=== PATIENT | male | born 1995 | race Caucasian/White ===

== ENCOUNTER 2021-10-18 18:57 | Emergency (ER) | payer BC, SELFPAY ==
[2021-10-18 19:07] VITALS: BP 123/68; PULSE 71; RESP 20; TEMP 36.7; O2SAT 99
--- NOTE | 2021-10-18 19:58 | ED.URI ---
HPI - URI/Sore Throat General Chief Complaint: Upper Respiratory Infection Stated Complaint: sore throat/cough Source: patient and RN notes reviewed Limitations: no limitations History of Present Illness HPI Narrative: The vaccinated patient, previously mostly healthy except for orthopedic injuries, presents with similar sick friend for mild sore throat. Patient states he was exposed to a Covid positive unvaccinated patient 2 days ago; he feels he might have scant cough and sore throat. No earache, nasal congestion; no fever, loss of taste/smell, CP, vomiting/diarrhea, S OB. Patient would like Covid testing for his exposure, and discussed that the better test is a PCR Related Data Home Medications Medication Instructions Recorded Confirmed meloxicam 15 mg PO DAILY 10/18/21 10/18/21 Allergies Allergy/AdvReac Type Severity Reaction Status Date / Time No Known Allergies Allergy Unverified 10/18/21 19:11 Review of Systems Review of Systems: General/Constitutional: No weight loss,fever Eyes: N0: Redness,discharge Ears/Nose/Throat: No: Epistaxis,ear discharge Respiratory: Denies: Hemoptysis Gastrointestinal: No Vomiting, Bleeding-rectal Skin: No Lumps, eruption PMFSH Comments At time of signature, agree with nursing past medical, surgical, social and family history. There is no relevant family history pertinent to the presenting complaint Exam Narrative: General Appearance: Well appearing, Conjunctiva clear Ears: Auditory canal normal, TM normal Nose: no rhinorrhea, Mucousal erythema Mouth/Throat: MM moist, Uvula midline, Pharyngeal erythema no exudate, Supple, No adenopathy Respiratory: No respiratory distress, Breath sounds equal, Clear to auscultation Cardiovascular: RRR, No JVD Musculoskeletal: Non tender, Normal strength, Warm, Dry Neurological: A&O x3, , Normal affect Course Vital Signs Vital signs: Vital Signs Temperature 98.0 F 10/18/21 19:07 Pulse Rate 71 10/18/21 19:07 Respiratory Rate 20 10/18/21 19:07 Blood Pressure 123/68 10/18/21 19:07 Pulse Oximetry 99 10/18/21 19:07 Temperature 98.0 F 10/18/21 19:07 Pulse Rate 71 10/18/21 19:07 Respiratory Rate 20 10/18/21 19:07 Blood Pressure 123/68 10/18/21 19:07 Pulse Oximetry 99 10/18/21 19:07 Discharge Plan Discharge Clinical Impression: Tonsil pain Patient Disposition: Home, Self-Care Condition: Stable Instructions: Antibiotic Form Prescriptions: New codeine-guaifenesin 10-100 mg/5 mL liquid 7.5 ml PO Q6H PRN (Reason: cough) Qty: 118 RF: 0 lidocaine HCl [Lidocaine Viscous] 2 % solution 5 ml MUCOUS MEM QID PRN (Reason: pain) Qty: 200 RF: 1 No Action meloxicam 15 mg tablet 15 mg PO DAILY RF: 0 Other Ambulatory Orders: SARS-CoV-2 RNA, Qual RT-PCR (Routine) Location: Determined by Patient Ordered By: Nicola Donnelly Follow-up/Referrals: UNKNOWN,DOCTOR [Primary Care Provider] -
== END 2021-10-18 20:05 | disposition home or self-care (01) ==
PROVIDERS: Emergency Provider Emergency Medicine
DX: R07.0 Pain in throat (principal); Z20.822 Contact with and (suspected) exposure to COVID-19
CPT/HCPCS: 99203; G0463

== ENCOUNTER 2022-11-30 10:10 | Emergency (ER) | payer BC, SELFPAY ==
--- NOTE | ~2022-11-30 | XR_ITS ---
EXAMINATION: XR chest 2V DATE: 11/30/2022 11:05 INDICATION: Cough TECHNIQUE: PA and lateral views of the chest are obtained. COMPARISON: None available FINDINGS: There are minimal airspace opacities of the right lung base. No pleural effusion or pneumot horax. The cardiomediastinal silhouette is normal. The visualized bones and soft tissues are unremark able. IMPRESSION: 1. Minimal right basilar airspace opacity, likely pneumonia. Consider followup radiographs or CT in s ix weeks if symptoms persist after appropriate therapy. Reviewed, dictated and finalized at location B. E OPERATOR IMPRESSION: 1. Minimal right basilar airspace opacity, likely pneumonia. Consider followup radiographs or CT in six weeks if symptoms persist after appropriate therapy.
[2022-11-30 10:17] VITALS: BP 116/66; PULSE 68; RESP 16; TEMP 36.6; O2SAT 100
--- NOTE | 2022-11-30 10:38 | ED.URI ---
HPI - URI/Sore Throat General Chief Complaint: Upper Respiratory Infection Stated Complaint: Shortness of Breath,Chest Pain Time Seen by Provider: 11/30/22 10:38 Source: patient Mode of arrival: ambulatory Limitations: no limitations History of Present Illness HPI Narrative: 27-year-old male presents with complaint coughing, chest tightness, shortness of breath with exertion. Reports that he has had symptoms for approximately 1 month. Getting progressively worse. Afebrile. Cannot remember if symptoms initially started with a URI. Does not have a PCP. Patient has smoking for several years. Reports that chest tightness and shortness of breath is getting to be a nuisance while at work. All Systems reviewed and negative except as noted above. Related Data Allergies Allergy/AdvReac Type Severity Reaction Status Date / Time No Known Allergies Allergy Unverified 11/30/22 10:35 Review of Systems Review of Systems: CONSTITUTIONAL: Denies fever, chills, or sweats. EYES: Denies visual changes, redness, or discharge. ENT: Denies rhinorrhea, congestion, sore throat, or otalgia. CARDIOVASCULAR: Denies chest pain, palpitations, or edema. RESPIRATORY: reports cough and dyspnea with exertion. GASTROINTESTINAL: Denies abdominal pain, nausea, vomiting, or diarrhea. GENITOURINARY: Denies dysuria or hematuria. SKIN: Denies rash or itching. MUSCULOSKELETAL: Denies back pain, joint pain, or myalgia. NEUROLOGIC: Denies headache, numbness, or weakness. PSYCHIATRIC: Denies anxiety or depression. All other systems reviewed are negative, except as documented in HPI. PMFSH Comments At time of signature, agree with nursing past medical, surgical, social and family history. There is no relevant family history pertinent to the presenting complaint. Exam Narrative: GENERAL: This is a well-nourished, well-developed patient, in no apparent distress. HEAD: normocephalic, atraumatic. EYES: PERRL. Sclera clear/white. Vision is grossly intact. EARS: External ears normal NOSE: External nose normal with no obvious nasal discharge, nares without redness, no rhinorrhea. THROAT: Mucous membranes moist, posterior pharynx clear. NECK: Neck supple, non-tender without lymphadenopathy, masses or thyromegaly. CARDIOVASCULAR: Regular rate and rhythm without murmurs, gallops, or rubs. RESPIRATORY: Clear to auscultation. Breath sounds equal bilaterally. No wheezes, rales, or rhonchi. SKIN: warm, Dry, intact with no suspicious lesions or rash, good texture and turgor. NEURO: awake, alert, and oriented to person, place and time. There were no obvious focal neurologic abnormalities. EXTREMITIES: No joint tenderness, effusion, or edema noted. Course Course Level of Care: Express Care Visit Vital Signs Vital signs: Vital Signs Temperature 36.6 C 11/30/22 10:17 Pulse Rate 68 11/30/22 10:17 Respiratory Rate 16 11/30/22 10:17 Blood Pressure 116/66 11/30/22 10:17 Pulse Oximetry 100 11/30/22 10:17 Oxygen Delivery Room Air 11/30/22 10:17 Temperature 36.6 C 11/30/22 10:17 Pulse Rate 68 11/30/22 10:17 Respiratory Rate 16 11/30/22 10:17 Blood Pressure 116/66 11/30/22 10:17 Pulse Oximetry 100 11/30/22 10:17 Oxygen Delivery Room Air 11/30/22 10:17 reviewed MDM - URI/Sore Throat MDM Narrative Medical decision making narrative: discussed chest x-ray results with patient. Referred to a PCP to establish care. Will treat for pneumonia today. Did discuss that he will need a CT outpatient if symptoms not improving. Patient is aware of diagnosis, understands and agrees to treatment plan. Anticipatory guidance given. Patient agrees to follow-up as directed and is aware of reasons to seek care at the emergency department. Portions of this record may have been created with voice recognition software Imaging Data My impression: agree with radiologist Radiologist's impression: INDICATION: Cough TECHNIQUE: TYRESE and
== END 2022-11-30 11:28 | disposition home or self-care (01) ==
PROVIDERS: Emergency Provider Nurse Practitioner Family
DX: J18.9 Pneumonia, unspecified organism (principal)
CPT/HCPCS: 71046; 99213; G0463

== ENCOUNTER 2023-03-08 12:46 | Emergency (ER) | payer BC, SELFPAY ==
--- NOTE | ~2023-03-08 | XR_ITS ---
Clinical Indication: Chest pain PA and lateral views of the chest: Comparison: 11/30/2022 Findings: The lungs are clear, without evidence of focal consolidation or pleural effusion. Cardiome diastinal silhouette is within normal limits. Bones and soft tissues are unremarkable. Impression: Normal chest. Reviewed, dictated and finalized at location . Impression: Normal chest.
[2023-03-08 13:10] VITALS: BP 111/57; PULSE 68; RESP 16; TEMP 36.9; O2SAT 98
--- NOTE | 2023-03-08 13:22 | ED.URI ---
HPI - URI/Sore Throat General Chief Complaint: Upper Respiratory Infection Stated Complaint: chest pain,sob Time Seen by Provider: 03/08/23 13:30 Source: patient, RN notes reviewed and old records reviewed Mode of arrival: ambulatory Limitations: no limitations History of Present Illness HPI Narrative: 27 year old male presents to express care with complaints of some dyspnea with exertion noted at times and some tightness in his chest noted with his breathing. Patient reports that he was diagnosed with pneumonia in November and was told to have follow up chest x-ray for follow up but patient reports that he does not have PCP. Patient continues to vape daily though he states that he has cut use, no tachypnea noted, SAO2 98% on room air.Patient denies any history of any reactive airway disease. MD elicited complaint: other (some CLAY reported with tightness chest) Pertinent past history: pneumonia Description of mucous: clear Able to tolerate fluids by mouth: Yes Treatments prior to arrival: other (inhaler) Related Data Allergies Allergy/AdvReac Type Severity Reaction Status Date / Time No Known Allergies Allergy Verified 03/08/23 13:16 Review of Systems Review of Systems: CONSTITUTIONAL: Denies fever, chills, or sweats. EYES: Denies visual changes, redness, or discharge. ENT: Denies rhinorrhea, congestion, sore throat, or otalgia. CARDIOVASCULAR: Denies chest pain, palpitations, or edema. RESPIRATORY: Denies cough, reports some CLAY and some tightness to chest with breathing at times. GASTROINTESTINAL: Denies abdominal pain, nausea, vomiting, or diarrhea. GENITOURINARY: Denies dysuria or hematuria. SKIN: Denies rash or itching. MUSCULOSKELETAL: Denies back pain, joint pain, or myalgia. NEUROLOGIC: Denies headache, numbness, or weakness. PSYCHIATRIC: Denies anxiety or depression. All systems reviewed & are unremarkable except as noted in HPI and below PMFSH Past Medical History Medical History (Updated 03/11/23 @ 09:38 by Crystal Kohli NP) Back pain Pneumonia Surgical History Surgical History (Updated 03/08/23 @ 14:32 by Crystal Kohli NP) History of hip surgery left August 2021 Social History Social History (Updated 03/08/23 @ 14:34 by Crystal Kohli NP) Smoking status: Current every day smoker Tobacco type: e-cigarettes/vaping Alcohol intake: former Substance use: current Substance use type: marijuana Gender identity (if verbalized by the patient): Male Comments At time of signature, agree with nursing past medical, surgical, social and family history. There is no relevant family history pertinent to the presenting complaint Exam Narrative: GENERAL: Well-appearing, well-nourished, and in no acute distress. HEAD: Normocephalic, atraumatic. EYES: PERRLA and EOMI. ENT: Nares clear, no rhinorrhea or epistaxis. Mucous membranes moist.TM's normal with good light reflex, throat pink with no lesions NECK: Supple. no lymphadenopathy CHEST: Clear to auscultation. No respiratory distress.SAO2 98% on room air no tachypnea, no cough noted no accessory muscle use noted. HEART: Regular rate and rhythm. No murmur heard. Normal peripheral pulses. ABDOMEN: Soft, nontender, nondistended, normal active bowel sounds. EXTREMITIES: Normal range of motion. No edema. SKIN: Warm, dry, no rash. NEURO: No focal deficits. Alert and oriented x3. Course Course Emergency Course: Patient is aware of diagnosis, understands and agrees to treatment plan.? Anticipatory guidance given.? Patient agrees to follow-up as directed and is aware of reasons to seek care at the emergency department. Portions of this record may have been created with voice recognition software Level of Care: Express Care Visit Vital Signs Vital signs: Vital Signs Temperature 36.9 C 03/08/23 13:10 Pulse Rate 68 03/08/23 13:10 Respiratory Rate 16 03/08/23 13:10 Blood Pressure 111/57 L 03/08/23 13:10 Pulse Oximetry 98
== END 2023-03-08 14:17 | disposition home or self-care (01) ==
PROVIDERS: Emergency Provider Registered Nurse
DX: R06.09 Other forms of dyspnea (principal); F17.290 Nicotine dependence, other tobacco product, uncomplicated; F12.90 Cannabis use, unspecified, uncomplicated
CPT/HCPCS: 71046; 99213; G0463

== ENCOUNTER 2023-10-01 13:38 | Emergency (ER) | payer OTHER, SELFPAY ==
--- NOTE | ~2023-10-01 | XR_ITS ---
EXAMINATION: XR chest 2V Exam Date/Time: 10/01/2023 14:05 SHELLAC POLISHER HISTORY: cough for 3 weeks Comparison: 03/08/2023 and 11/30/2022. RESULT: Lines, tubes, and devices: None. Lungs and pleura: Scattered areas of scar. Granulomas calcifications. Scattered reticulonodular opac ities. Cardiomediastinal silhouette: Stable. Other: No acute osseous or upper abdominal finding. IMPRESSION: Pulmonary opacities may represent bronchiolitis, as can be seen with atypical infection, asthma, aspi ration, and small airways disease Reviewed, dictated and finalized at location K. LAC POLISHER IMPRESSION: Pulmonary opacities may represent bronchiolitis, as can be seen with atypical i nfection, asthma, aspiration, and small airways disease
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
[2023-10-01 14:05] VITALS: BP 131/82; PULSE 75; RESP 18; TEMP 36.9; O2SAT 98
== END 2023-10-01 15:00 | disposition home or self-care (01) ==
PROVIDERS: Emergency Provider Nurse Practitioner Family
DX: J01.90 Acute sinusitis, unspecified (principal); J20.9 Acute bronchitis, unspecified; F17.290 Nicotine dependence, other tobacco product, uncomplicated; F12.90 Cannabis use, unspecified, uncomplicated
CPT/HCPCS: 71046; 99213; G0463

== ENCOUNTER 2024-05-26 14:47 | Emergency (ER) | payer OTHER, SELFPAY ==
[2024-05-26 14:55] VITALS: BP 126/71; PULSE 67; RESP 18; TEMP 36.8; O2SAT 99
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
[2024-05-26 18:06] LABS: Trichomonas Vag PCR NOT DETECTED (NOT DETECTE)
[2024-05-26 18:30] LABS: Chlamydia trachomatis NOT DETECTED (NOT DETECTE); Neisseria gonorrhoeae PCR NOT DETECTED (NOT DETECTE)
== END 2024-05-26 15:13 | disposition home or self-care (01) ==
PROVIDERS: Emergency Provider Nurse Practitioner Family
DX: Z11.3 Encounter for screening for infections with a predominantly sexual mode of transmission (principal); Z20.822 Contact with and (suspected) exposure to COVID-19; F17.290 Nicotine dependence, other tobacco product, uncomplicated; F12.90 Cannabis use, unspecified, uncomplicated
CPT/HCPCS: 87491; 87591; 87661; 99213; G0463

== ENCOUNTER 2024-09-03 10:56 | Emergency (ER) | payer OTHER, SELFPAY ==
[2024-09-03 11:06] VITALS: BP 122/69; PULSE 70; RESP 16; TEMP 36.6; O2SAT 99
--- NOTE | 2024-09-03 11:11 | ED.WOUNDLAC ---
HPI - Wound/Laceration General Stated Complaint: head wound Time Seen by Provider: 09/03/24 11:11 Source: patient and RN notes reviewed Mode of arrival: ambulatory Limitations: no limitations History of Present Illness HPI narrative: 29-year-old male presents with concern for alina in his head. Reports he had them placed 9 days ago. Reports his work is giving him problems with returning with the alina in his head for safety reasons. He denies any complications, any bleeding any pain. Related Data Home Medications Medication Instructions Recorded Confirmed No Home Medications 05/26/24 09/03/24 Allergies Allergy/AdvReac Type Severity Reaction Status Date / Time No Known Allergies Allergy Verified 05/26/24 15:04 Review of Systems Review of Systems: CONSTITUTIONAL: Denies malaise, chills, sweats, or fever. SKIN: Reports healing laceration to his scalp MUSCULOSKELETAL: Denies muscle skeletal pain NEUROLOGIC: Denies numbness, weakness All systems reviewed & are unremarkable except as noted in HPI and below PMFSH Past Medical History Medical History Back pain Pneumonia Surgical History Surgical History History of hip surgery left August 2021 Social History Social History Smoking status: Current every day smoker Tobacco type: e-cigarettes/vaping Alcohol intake: former Substance use: current Substance use type: marijuana Gender identity (if verbalized by the patient): Male Comments At time of signature, agree with nursing past medical, surgical, social and family history. There is no relevant family history pertinent to the presenting complaint Exam Narrative: GENERAL: Well-appearing, well-nourished, and in no acute distress. HEAD: Normocephalic, atraumatic. EYES: PERRLA, conjunctivae clear, and EOMI. ENT: Mucous membranes moist. NECK: Supple. No lymphadenopathy CHEST: Clear to auscultation. No respiratory distress. HEART: Regular rate and rhythm. SKIN: Warm, dry. Healed laceration noted to the scalp with 5 intact staple NEURO: Alert and oriented x3. PSYCH: Normal mood and affect Course Course Emergency Course: Patient is aware of diagnosis, understands and agrees to treatment plan. Anticipatory guidance given. Patient agrees to follow-up as directed and is aware of reasons to seek care at the emergency department. Portions of this record may have been created with voice recognition software Level of Care: Express Care Visit Vital Signs Vital signs: Vital Signs Temperature 97.8 F 09/03/24 11:06 Pulse Rate 70 09/03/24 11:06 Respiratory Rate 16 09/03/24 11:06 Blood Pressure 122/69 09/03/24 11:06 Pulse Oximetry 99 09/03/24 11:06 Oxygen Delivery Room Air 09/03/24 11:06 Temperature 97.8 F 09/03/24 11:06 Pulse Rate 70 09/03/24 11:06 Respiratory Rate 16 09/03/24 11:06 Blood Pressure 122/69 09/03/24 11:06 Pulse Oximetry 99 09/03/24 11:06 Oxygen Delivery Room Air 09/03/24 11:06 Reviewed. MDM - Wound/Laceration MDM Narrative Medical decision making narrative: Verbal consent was obtained. Wound well approximated, no erythema, induration, or discharge noted. Five alian completely removed in a sterile fashion. Patient tolerated procedure well, no complications. Patient advised to look for and return for any signs of infection such as redness, swelling, discharge, or worsening pain. Differential Diagnosis Differential diagnosis: Likely laceration, abrasion and avulsion of skin Critical Care Time Critical Care Time Critical Care Time: No Discharge Plan Discharge Clinical Impression: Removal of alina Patient Disposition: Home, Self-Care Condition: Stable Instructions: Antibiotic Form Additional Instructions: AFTER the staple are remov
[2024-09-03 11:13] VITALS: BP 122/69; PULSE 70; RESP 16; TEMP 36.6; O2SAT 99
== END 2024-09-03 11:24 | disposition home or self-care (01) ==
PROVIDERS: Emergency Provider Nurse Practitioner
DX: S01.01XD Laceration without foreign body of scalp, subsequent encounter (principal); X58.XXXD Exposure to other specified factors, subsequent encounter; F17.290 Nicotine dependence, other tobacco product, uncomplicated; F12.90 Cannabis use, unspecified, uncomplicated
CPT/HCPCS: 99211; G0463

== ENCOUNTER 2025-06-13 00:38 | Day surgery (SDC) | payer OTHER, SELFPAY ==
[2025-06-11 13:11] VITALS: BMI 18.8
--- OUTSIDE RECORDS SUMMARY | 2025-06-13 00:40 | XMS_ITS | Referral Summary ---
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 Name Role Phone Unknown, Notinfile Primary Care Provider Unavail able Encounters Date Type Department Care Team Description 05/22/2025 12:40 PM CDT - 05/22/2025 3:14 PM CDT Emergency [facility] [address] [place] [address] Jared Avendano MD Intercostal pain (Primary Dx) Discharge Disposition: Discharge to home or self care from Last 3 Months Allergies No known active allergies Social History Tobacco Use Types Packs/Day Years Used Date Smoking Tobacco: Never Assessed Personal Safety Answer Date Recorded Have you ever been in or are you currently in a harmful physical or emotional relationship or is someone making you feel afraid or unsafe? Denies 05/22/2025 Sex and Gender Information Value Date Recorded Sex Assigned at Not on file Legal Sex Male 12:34 PM [employer] Gender Identity Not on file Sexual Orientation Not on file Last Filed Vital Signs Vital Sign Reading Time Taken Comments Blood Pressure 102/55 05/22/2025 3:06 PM CDT Pulse 55 05/22/2025 3:06 PM CDT Temperature 36.6 C (97.9 F) 05/22/2025 12:18 PM CDT Respiratory Rate 15 05/22/2025 3:06 PM CDT Oxygen Saturation 99% 05/22/2025 3:06 PM CDT Inhaled Oxygen Concentration - - Weight 56.7 kg (125 lb) 05/22/2025 12:18 PM CDT Height 170.2 cm (5' 7) 05/22/2025 12:18 PM CDT Body Mass Index 19.58 05/22/2025 12:18 PM CDT Plan of Treatment Not on file Procedures Procedure Name Priority Date/Time Associated Diagnosis Comments TROPONIN I HIGH-SENSITIVITY 2-HOUR Timed 05/22/2025 2:26 PM CDT POCT RAPID HIV ANTIBODY COMMUNITY SCREENING-OLE ELIGIBLE Routine 05/22/2025 1:33 PM CDT D-DIMER, QUANTITATIVE STAT 05/22/2025 1:25 PM CDT XR CHEST PA LATERAL 2 VIEWS ED 05/22/2025 12:59 PM CDT ECG 12-LEAD STAT 05/22/2025 12:37 PM CDT EGFR STAT 05/22/2025 12:33 PM CDT DIFFERENTIAL AUTO STAT 05/22/2025 12: 33 PM CDT TROPONIN I HIGH-SENSITIVITY SERIES (BASELINE, 2HR, 4HR, 6HR) STAT 05/22/2025 12:33 PM CDT COMPREHENSIVE METABOLIC PANEL STAT 05/22/2025 12:33 PM CDT CBC WITH AUTO DIFFERENTIAL STAT 05/22/2025 12:33 PM CDT from Last 3 Months Results * Troponin I high-sensitivity 2-hour (05/22/2025 2:26 PM CDT) Trop I hs <4 <=35 ng/L Comment: Interpretive Data For further hscTnI resources including the diagnostic algorithm and an aid in interpretation, copy and paste this link: https://bjhlab.testcatalog.org/show/hsTrop-[email or web address] Current Interpretive Data last revised 2020. Trop I hs delta 0 ng/L [facility] Trop I hs interp Insignificant [facility] H Blood 05/22/2025 2:26 PM CDT 05/22/2025 2:46 PM CDT Margaret White MD LAB BLOOD ORDERABLES Final Result [facility] Department [place] [employer] [place] [address] * POCT Rapid HIV Antibody Community Screening-Ole Eligible (05/22/2025 1:33 PM CDT) Pathologist [facility] [place] Rapid HIV, POC Negative Negative Lot Number [id number] QC Control Line Acceptable Blood 05/22/2025 1:33 PM CDT Jared Avendano MD POINT OF CARE TEST ORDER KATHLEEN Final Result * D-dimer, quantitative (05/22/2025 1:25 PM CDT) [facility] D-Dimer <215 <=499 ng/mL FEU Comment: Interpretive data FDA approved the D-dimer, in conjunction with a low or moderate pretest probability score, to exclude venous thromboembolic events (VTE) (PE and DVT) in outpatients when the D-dimer result is < 500 ng/ml FEU. Evidence supports using an age-adjusted D-dimer cut-off for outpatients older than 50 (age x 10) to improve specificity without sacrificing sensitivity. Example: age 68, VTE cut-off 680 ng/ml FEU. References; Schouten HT et al. Brit Med J. 2013;346:f2492. Alex et al. Annals Int Med. 2015;163:701-11. Current interpretive data was last revised on 2019. Blood 05/22/2025 1:25 PM CDT 05/22/2025 1:41 PM CDT us Nemesio Mullins MD LAB BLOOD ORDERABLES F inal Result Performing Organization Address City/[facility]/ZIP Co de Phone Number [facility] Department [place] [employer] [place] [address] * XR Chest PA Lateral 2 Views (If patient hemodynamically stable and ambulatory) (05/22/2025 12:59 PMCDT) Anatomical Region Laterality Modality Body, Chest N/A Computed Radiogr aphy 05/22/2025 1:04 PM CDT Impressions 05/22/2025 1:31 PM CDT No focal consolidation, pleural effusion, or pneumothorax. The cardiomediastinal silhouette is unremarkable. Calcified granuloma. Dictated by: Inez Ortiz MD, MPHS The radiology attending physician has personally reviewed this study, and had reviewed and/or edited this written report and agrees with it. Electronically signed by: Richie Mendez M.D. Narrative 05/22/2025 1:31 PM CDT EXAMINATION: 2 view chest radiograph Procedure Note Richie Mendez MD - 05/22/2025 EXAMINATION: 2 view chest radiograph IMPRESSION: No focal consolidation, pleural effusion, or pneumothorax. The cardiomediastinal silhouette is unremarkable. Calcified granuloma. Dictated by: Inez Ortiz MD, MPHS The radiology attending physician has personally reviewed this study, and had reviewed and/or edited this written report and agrees with it. Electronically signed by: Richie Mendez M.D. Jared Avendano MD IMG XR PROCEDURES Final Result * ECG 12-LEAD (05/22/2025 12:37 PM CDT) Narrative [facility] [place] - 05/22/2025 12:37 PM CDT Katelyn Mccray MD 05/22/2025 12:38 PM ECG 12 lead Date/Time: 05/22/2025 12:37 PM Performed by: Katelyn Mccray MD Authorized by: Moe Ng MD Rate: ECG rate: 59 ECG rate assessment: bradycardic Rhythm: Rhythm: sinus bradycardia Ectopy: Ectopy: none QRS: QRS axis: Normal Conduction: Conduction: normal ST segments: ST segments: Normal T waves: T waves: non-specific and inverted Inverted: V1, aVL and aVR Other findings: Other findings: early repolarization Previous ECG: Previous ECG: Unavailable Interpretation: Interpretation: No acute injury pattern Recommended Follow-up: Recommended follow up: further workup in the ED us Jared Avendano MD ECG ORDERABLES Final Re sult [facility] * Troponin I high-sensitivity series (baseline, 2hr, 4hr, 6hr) (05/22/2025 12:33 PM CDT) Trop I hs <4 <=35 ng/L Comment: Interpretive Data For further hscTnI resources including the diagnostic algorithm and an aid in interpretation, copy and paste this link: https://bjhlab.testcatalog.org/show/hsTrop-[email or web address] Current Interpretive Data last revised 2020. Blood 05/22/2025 12:3 3 PM CDT 05/22/2025 12:51 PM CDT us Jared Avendano MD LAB BLOOD ORDERABLES Fin al Result [facility] [place] [address] * eGFR (05/22/2025 12:33 PM CDT) eGFR >90 >=60 mL/min/1. 73 m2 Comment: Interpretive Data Reference Interval Normal >/= 90 mL/min/1.73m2 Mildly decreased* 60 - 89 mL/min/1.73m2 Mildly to moderately decreased 45 - 59 mL/min/1.73m2 Moderately to severely decreased 30 - 44 mL/min/1.73m2 Severely decreased 15 - 29 mL/min/1.73m2 Kidney Failure < 15 mL/min/1.73m2 *Relative to young adult level Estimated glomerular filtration rate is determined by the 2020 CKD-EPI equation recommended by the National Kidney Foundation (A Unifying Approach to GFR Estimation: Recommendations of the NKF-ASK Task Force on Reassessing the Inclusion of Race in Diagnosing Kidney Disease, JASN 2020). The CKD-EPI equation should not be used for patients with unstable renal function and has not been validated in children and those over 70. Current interpretive data was last reviewed 2021. Blood 05/22/2025 12:3 3 PM CDT 05/22/2025 12:51 PM CDT us Margaret White MD LAB BLOOD ORDERABLES Final Result [facility] [place] [address] * Differential, auto (05/22/2025 12:33 PM CDT) Neutrophil abs 2.54 1.50 - 6.50 K/cumm Imm gran abs 0.02 0.00 - 0.10 K/cumm [facility] Lymphocyte abs 2.17 0.80 - 3.30 K/cumm [facility] Monocyte abs 0.71 0.20 - 0.80 K/cumm [facility] Eosinophil abs 0.17 0.00 - 0.50 K/cumm [facility] Basophil abs 0.07 0.00 - 0.10 K/cumm [facility] Neutrophil pct 44.7 % [facility] Comment: Interpretive Data Percent cell count reference ranges are not reported, since discordance with absolute values may lead to misinterpretation of CBC data. Current Interpretive Data was last revised on 2018. Imm gran pct 0.4 % [facility] Comment: Interpretive Data Percent cell count reference ranges are not reported, since discordance with absolute values may lead to misinterpretation of CBC data. Current Interpretive Data was last revised on 2018. Lymphocyte pct 38.2 % [facility] Comment: Interpretive Data Percent cell count reference ranges are not reported, since discordance with absolute values may lead to misinterpretation of CBC data. Current Interpretive Data was last revised on 2018. Monocyte pct 12.5 % [facility] Comment: Interpretive Data Percent cell count reference ranges are not reported, since discordance with absolute values may lead to misinterpretation of CBC data. Current Interpretive Data was last revised on 2018. Eosinophil pct 3.0 % [facility] Comment: Interpretive Data Percent cell count reference ranges are not reported, since discordance with absolute values may lead to misinterpretation of CBC data. Current Interpretive Data was last revised on 2018. Basophil pct 1.2 % [facility] Comment: Interpretive Data Percent cell count reference ranges are not reported, since discordance with absolute values may lead to misinterpretation of CBC data. Current Interpretive Data was last revised on 2018. Blood 05/22/2025 12:3 3 PM CDT 05/22/2025 12:51 PM CDT us Jared Avendano MD LAB BLOOD ORDERABLES Fin al Result [facility] [place] [address] * CBC with auto differential (05/22/2025 12:33 PM CDT) WBC 5.68 3.80 - 9.90 K/cumm Hgb 14.6 13.0 - 17.5 g/dL [facility] Hct 41.9 38.9 - 50.3 % [facility] Plt 246 150 - 400 K/cumm [facility] MPV 9.9 9.1 - 12.3 fL [facility] RBC 4.97 4.30 - 5.80 M/cumm [facility] MCV 84.3 81.3 - 96.4 fL [facility] MCH 29.4 27.1 - 33.3 pg [facility] MCHC 34.8 32.3 - 35.7 g/dL [facility] RDW CV 13.1 11.1 - 14.9 % [facility] RDW SD 40.4 35.7 - 48.1 fL [facility] NRBC abs 0.00 0.00 - 0.01 K/cumm [facility] Blood Venous blood specimen / Unknown 05/22/2025 12:33 PM CDT 05/22/2025 12:51 PM CDT Jared Avendano MD LAB BLOOD ORDERABLES Fin al Result Performing Organization Address [facility]/ZIP Co de Phone Number [facility] [place] [address] * (ABNORMAL) Comprehensive metabolic panel (05/22/2025 12:33 PM CDT) Sodium 139 135 - 145 mmol/L Potassium, pl 4.6 3.3 - 4.9 mmol/L [facility] Chloride 105 97 - 110 mmol/L [facility] CO2 28 22 - 32 mmol/L [facility] Anion gap 6 2 - 15 mmol/L [facility] BUN 12 6 - 25 mg/dL [facility] Creatinine 0.79(L) 0.80 - 1.30 mg/dL [facility] Glucose 94 70 - 199 mg/dL [facility] Comment: Interpretive Data Fasting glucose >/= 126 mg/dl is diagnostic for diabetes. Fasting is defined as no caloric intake for at least 8 hours. Fasting glucose between 100 mg/dl to 125 mg/dl is diagnostic of prediabetes. In a patient with classic symptoms of hyperglycemia or hyperglycemic crisis, a random glucose >/= 200 mg/dl is diagnostic for diabetes. In the absence of unequivocal hyperglycemia, results should be confirmed by repeat testing. The classification and Diagnosis of Diabetes Diabetes Care 2021; 46: S19-S40. Current interpretive data was last revised 2022. Calcium 9.1 8.5 - 10.3 mg/dL [facility] Bilirubin, total 0.5 0.1 - 1.2 mg/dL [facility] Protein, pl 7.0 6.5 - 8.5 g/dL [facility] Albumin 4.4 3.5 - 5.0 g/dL [facility] Alk phos 53 40 - 130 Units/L [facility] ALT 28 7 - 55 Units/L [facility] AST 30 10 - 50 Units/L [facility] Blood 05/22/2025 12:3 3 PM CDT 05/22/2025 12:51 PM CDT Jared Avendano MD LAB BLOOD ORDERABLES Fin al Result Performing Organization Address [facility]/State/ZIP Co de Phone Number [facility] [place] [address] from Last 3 Months Insurance BLUE [employer] O[employer] COVENTRY PPO [employer] COV[employer] PPO Care Teams Engine Oiler Relationship Specialty Start Date End Date Unknown, Notinfile PCP - General 10/10/22
--- OUTSIDE RECORDS SUMMARY | 2025-06-13 00:40 | XMS_ITS | Clinical Summary ---
Author Organization [facility] Address [address] [place] [address] Care Team Providers Care Professor Of Psychiatry Name Role Phone Katelyn Harry [employer] Primary Care Provider [phone] Allergies No known active allergies Medications dicyclomine (BENTYL) 20 MG tablet Take 1 tablet (20 mg total) by mouth every 6 (six) hours. 20 tablet 5 Active ondansetron (ZOFRAN-ODT) 4 MG disintegrating tablet Take 1 tablet (4 mg total) by mouth every 8 (eight) hours as needed for Nausea. 20 tablet 5 Active Encounters Date Type Department Care Team Description 06/06/2025 9:31 AM CDT - 06/06/2025 12:04 PM CDT Emergency [facility] Emergency Room [address] [place] [id number] Zita Fonseca MD Abdominal Pain Discharge Disposition: Home or Self Care (Routine Discharge) 06/06/2025 Travel from Last 3 Months Family History Medical History Relation Comments Heart Disease Father Hypertension Father Asthma Mother Diabetes Sister Relation Status Comments Father Mother Sister Social History Tobacco Use Types Packs/Day Years Used Date Smoking Tobacco: Every Day Cigarettes 1 10 Smokeless Tobacco: Never Tobacco Cessation:Ready to Q uit: Not Asked; Counseling Given: Not Answered Comments:patient states he doesn't want counseling. Alcohol Use Standard Drinks/Week Comments No 0 (1 standard drink = 0.6 oz pur e alcohol) AUDIT-C Answer Date Recorded Frequency of Alcohol Consumption Never 06/29/2019 Average Number of Drinks Not on file 019 Frequency of Binge Drinking Not on file 06/20 Sex and Gender Information Value Date Recorded Sex Assigned at Not on file Legal Sex Male 8:16 PM CDT Gender Identity Not on file Sexual Orientation Not on file Last Filed Vital Signs Vital Sign Reading Time Taken Comments Blood Pressure 119/62 06/06/2025 11:24 AM CDT Pulse 46 06/06/2025 11:25 AM CDT Temperature 36.6 C (97.9 F) 06/06/2025 9:38 AM CDT Respiratory Rate 19 06/06/2025 11:25 AM CDT Oxygen Saturation 96% 06/06/2025 11:25 AM CDT Inhaled Oxygen Concentration - - Weight 56.7 kg (125 lb) 06/06/2025 9:38 AM CDT Height 170.2 cm (5' 7) 06/06/2025 9:38 AM CDT Body Mass Index 19.58 06/06/2025 9:38 AM CDT Plan of Treatment Health Maintenance Due Date Last Done Comments Annual Physical 1998 Hepatitis C 2013 DTaP, Tdap and Td Vaccines ( 1 - Tdap) 2014 Hepatitis B Vaccines (1 of 3 - 19+ 3-dose series) 2014 Pneumococcal Vaccine: Pediatrics (0 to 5 Years) and At-Risk Patients (6 to 49 Years) (1 of 2 - PCV) 2014 HPV Vaccines (1 - 3-dose SCD M series) 2022 COVID-19 Vaccine (3 - 2023-2 5 season) 2024 07/20/2021, 06/28/2021 Meningococcal B Vaccine Aged Out No l onger eligible based on patient's age to complete this topic Meningococcal Vaccine Aged Out No bhavana caesar eligible based on patient's age to complete this topic RSV Immunizations Under 20 Months Aged Out No longer eligible b ased on patient's age to complete this topic Procedures Procedure Name Priority Date/Time Associated Diagnosis Comments CT ABD+PEL W CON STAT 06/06/2025 11:1 0 AM CDT D-DIMER, QUANTITATIVE STAT 06/06/2025 9:48 AM CDT DRUG SCREEN RAPID STAT 06/06/2025 9:4 8 AM CDT URINALYSIS, AUTO, COMPLETE STAT 06/06/2025 9:48 AM CDT MAGNESIUM STAT 06/06/2025 9:48 AM CDT LACTIC ACID W REFLEX (SEPSIS) STAT 06/06/2025 9:48 AM CDT AMYLASE STAT 06/06/2025 9:48 AM CDT LIPASE STAT 06/06/2025 9:48 AM CDT COMPREHENSIVE METABOLIC PANEL STAT 06/06/2025 9:48 AM CDT SED RATE, ERYTHROCYTE (ESR) STAT 06/06/2025 9:48 AM CDT PARTIAL THROMBOPLASTIN TIME,PTT STAT 06/06/2025 9:48 AM CDT PROTHROMBIN TIME, VENOUS STAT 06/06/2025 9:48 AM CDT CBC W/DIFF AUTOMATED STAT 06/06/2025 9:48 AM CDT from Last 3 Months Results * CT ABD+PEL W CON (06/06/2025 11:10 AM CDT) Anatomical Region Laterality Modality Abdomen Computed Tomogra phy 06/06/2025 11:1 4 AM CDT Impressions 06/06/2025 11:18 AM CDT Impression: 1. No acute findings identified within the abdomen or pelvis. Normal appendix. 2. Trace simple appearing free fluid in the pelvis, nonspecific. 3. Bilateral sacroiliitis. Ordered By: ZITA FONSECA Interpreted By: Demarco Nixon MD, 06/06/2025 11:14 AM Narrative 06/06/2025 11:18 AM CDT [facility] [address] [place] [id number] CT abdomen and pelvis with IV contrast Comparison: AP abdomen pelvis 10/05/2017.. Indication: Right upper and right lower quadrant pain . Technique: CT imaging was performed of the abdomen and pelvis following the administration of intravenous contrast. Iodinated contrast was used due to the indications for the examination, to improve disease detection and further define anatomy. Coronal and sagittal reformatted images were generated and reviewed. A dose lowering technique was utilized for this procedure which may include but is not limited to dose reduction techniques, automated exposure control, and/or the use of iterative reconstruction in accordance with ALARA principle. Findings: - Lower Thorax: Calcified granulomas in the right lower lobe. No suspicious pulmonary abnormalities. No pleural or pericardial effusions. - Liver: Normal in morphology and enhancement. No suspicious hepatic masses are identified. The main portal vein is patent. - Biliary and Gallbladder: No intrahepatic or extrahepatic biliary ductal dilatation. The gallbladder is unremarkable. - Spleen: Normal in appearance. - Pancreas: Normal in appearance. - Adrenal Glands: Normal in appearance. - Kidneys: Symmetric in size and enhancement. No suspicious renal lesions. No hydronephrosis. - Abdominal and Pelvic Vasculature: No abdominal aortic aneurysm. - Gastrointestinal Tract: No abnormal dilation or wall thickening. The appendix is identified and is within normal limits. - Peritoneum/Mesentery/Retroperitoneum: Trace simple appearing free fluid in the pelvis, nonspecific. No free intraperitoneal air. - Lymph Nodes: No retroperitoneal, mesenteric, or pelvic lymphadenopathy. - Bladder: Normal in appearance. - Pelvic Organs: Unremarkable. - Body Wall: Unremarkable. - Musculoskeletal: No aggressive appearing osseous lesions. Bilateral sacroiliitis. Procedure Note Demarco Nixon MD - 06/06/2025 [facility] [address] [place] [address] CT abdomen and pelvis with IV contrast Comparison: AP abdomen pelvis 10/05/2017.. Indication: Right upper and right lower quadrant pain . Technique: CT imaging was performed of the abdomen and pelvis followingthe administration of intravenous contrast. Iodinated contrast was useddue to the indications for the examination, to improve disease detectionand further define anatomy. Coronal and sagittal reformatted images weregenerated and reviewed. A dose lowering technique was utilized for thisprocedure which may include but is not limited to dose reductiontechniques, automated exposure control, and/or the use of iterativereconstruction in accordance with ALARA principle. Findings: - Lower Thorax: Calcified granulomas in the right lower lobe. Nosuspicious pulmonary abnormalities. No pleural or pericardialeffusions. - Liver: Normal in morphology and enhancement. No suspicious hepaticmasses are identified. The main portal vein is patent. - Biliary and Gallbladder: No intrahepatic or extrahepatic biliary ductaldilatation. The gallbladder is unremarkable. - Spleen: Normal in appearance. - Pancreas: Normal in appearance. - Adrenal Glands: Normal in appearance. - Kidneys: Symmetric in size and enhancement. No suspicious renallesions. No hydronephrosis. - Abdominal and Pelvic Vasculature: No abdominal aortic aneurysm. - Gastrointestinal Tract: No abnormal dilation or wall thickening. Theappendix is identified and is within normal limits. - Peritoneum/Mesentery/Retroperitoneum: Trace simple appearing free fluidin the pelvis, nonspecific. No free intraperitoneal air. - Lymph Nodes: No retroperitoneal, mesenteric, or pelviclymphadenopathy. - Bladder: Normal in appearance. - Pelvic Organs: Unremarkable. - Body Wall: Unremarkable. - Musculoskeletal: No aggressive appearing osseous lesions. Bilateralsacroiliitis. Impression: 1. No acute findings identified within the abdomen or pelvis. Normalappendix. 2. Trace simple appearing free fluid in the pelvis, nonspecific. 3. Bilateral sacroiliitis. Ordered By: ZITA FONSECA Interpreted By: Demarco Nixon MD, 06/06/2025 11:14 AM Zita Fonseca MD CT Final Result * LACTIC ACID W REFLEX (SEPSIS) (06/06/2025 9:48 AM CDT) LACTIC ACID VENOUS 1.3 0.4 - 2.0 MMOL/L 06/06/2025 10:42 AM CDT [facility] 06/06/2025 9:48 AM CDT Zita Fonseca MD LABORATORY Final Result [facility] [address] [place] [address], [place] [phone] * (ABNORMAL) DRUG SCREEN RAPID (06/06/2025 9:48 AM CDT) [facility] AMPHETAMINE (U) NONE DETECTED NONE DETECTED 06/06/2025 10:42 AM CDT [facility] BARBITURATES SCREEN (U) NONE DETECTED NONE DETECTED 06/06/2025 10:42 AM CDT [facility] BENZODIAZEPINES SCREEN (U) NONE DETECTED NONE DETECTED 06/06/2025 10:42 AM CDT [facility] BUPRENORPHINE SCREEN (U) NONE DETECTED NONE DETECTED 06/06/2025 10:42 AM CDT [facility] COCAINE METABOLITES (U) NONE DETECTED NONE DETECTED 06/06/2025 10:42 AM CDT [facility] METHAMPHETAMINE (U) NONE DETECTED NONE DETECTED 06/06/2025 10:42 AM CDT [facility] METHADONE (U) NONE DETECTED NONE DETECTED 06/06/2025 10:42 AM CDT [facility] OPIATE SCREEN (U) NONE DETECTED NONE DETECTED 06/06/2025 10:42 AM CDT [facility] OXYCODONE SCREEN (U) NONE DETECTED NONE DETECTED 06/06/2025 10:42 AM CDT [facility] PHENCYCLIDINE PCP (U) NONE DETECTED NONE DETECTED 06/06/2025 10:42 AM CDT [facility] CANNABINOIDS SCREEN (U) DETECTED(A) NONE DETECTED 06/06/2025 10:42 AM CDT [facility] TRICYCLIC ANTIDEPRESSANT SCREEN (U) NONE DETECTED NONE DETECTED 06/06/2025 10:42 AM CDT [facility] Comment: NOTE: RESULTS OF THIS DRUG SCREEN SHOULD BE USED FOR MEDICAL PURPOSES ONLY AND NOT FOR LEGAL OR EMPLOYEMENT PURPOSES. MEDICATIONS CONTAINING EPHEDRINE MAY CAUSE FALSE POSITIVE AMPHETAMINE. AMPHETAMINE- 500 NG/ML BARBITURATE- 200 NG/ML BENZODIAZEPINE- 150 NG/ML BUPRENORPHINE- 10 NG/ML COCAINE- 150 NG/ML METHAMPHETAMINES- 500 NG/ML METHADONE- 200 NG/ML OPIATE- 100 NG/ML OXYCODONE- 100 NG/ML PCP- 25 NG/ML THC- 50 NG/ML TCA- 300 NG/ML URINE SPECIMEN / Unknown 06/06/2025 9:48 AM CDT us Zita Fonseca MD URINE ORDERABLES Final Result [facility] [address] [place] [address], [place] [phone] * URINALYSIS, AUTO, COMPLETE (06/06/2025 9:48 AM CDT) COLOR (U) YELLOW 06/06/2025 10:40 AM CDT [facility] TRANSPARENCY CLEAR 06/06/2025 10:40 AM CDT [facility] SPECIFIC GRAVITY (U) 1.015 1.000 - 1.030 06/06/2025 10:40 AM T [facility] U PH 7.0 5.0 - 9.0 06/06/2025 10:40 AM T [facility] LEUKOCYTES (U) NEGATIVE NEGATIVE 06/06/2025 10:40 AM T [facility] NITRITES NEGATIVE NEGATIVE 06/06/2025 10:40 AM CDT [facility] PROTEIN RANDOM (U) NEGATIVE NEGATIVE 06/06/2025 10:40 AM T [facility] GLUCOSE (U) NEGATIVE NEGATIVE 06/06/2025 10:40 AM CDT [facility] KETONES MG/DL (U) NEGATIVE NEGATIVE 06/06/2025 10:40 AM CDT [facility] BILIRUBIN (U) NEGATIVE NEGATIVE 06/06/2025 10:40 AM CDT [facility] BLOOD (U) NEGATIVE NEGATIVE 06/06/2025 10:40 AM CDT [facility] WBC/HPF NONE SEEN 0 - 5 /HPF 06/06/2025 10:40 AM CDT [facility] RBC/HPF NONE SEEN 0 - 5 /HPF 06/06/2025 10:40 AM CDT [facility] EPI/HPF FEW /HPF 06/06/2025 10:40 AM CDT [facility] URINE SPECIMEN OBTAINED BY CLEAN CATCH PROCEDURE / Unknown 06/06/2025 9:48 AM CDT us Zita Fonseca MD URINE ORDERABLES Final Result [facility] [address] [place] [address], [place] [phone] * PARTIAL THROMBOPLASTIN TIME,PTT (06/06/2025 9:48 AM CDT) PTT 33.9 25.1 - 36.5 SEC 06/06/2025 11:01 AM CDT [facility] 06/06/2025 9:48 AM CDT us Zita Fonseca MD LABORATORY Final Result [facility] [address] [place] [address], [place] [phone] * SED RATE, ERYTHROCYTE (ESR) (06/06/2025 9:48 AM CDT) ESR 4 0 - 15 MM/HR 06/06/2025 10:51 AM CDT [facility] 06/06/2025 9:48 AM CDT us Zita Fonseca MD LABORATORY Final Result Performing Organization Address [facility]/ZIP Co de Phone Number [facility] [address] [place] [address], [place] [phone] * (ABNORMAL) PROTIME/INR, VENOUS (06/06/2025 9:48 AM CDT) PROTIME 13.8(H) 9.1 - 12.4 SEC 06/06/2025 11:01 AM CDT [facility] INR 1.2 06/06/2025 11:01 AM CDT [facility] Comment: Recommend INR ranges for Oral Anticoagulant Therapy: Mechanical Cardiac Values 2.5-3.5 All others indication 2.0-3.0 06/06/2025 9:48 AM CDT us Zita Fonseca MD LABORATORY Final Result Performing Organization Address City/[facility]/ZIP Co de Phone Number [facility] [address] [place] [address], [place] [phone] * (ABNORMAL) COMPREHENSIVE METABOLIC PANEL (06/06/2025 9:48 AM CDT) GLUCOSE 102(H) 70 - 99 MG/DL 06/06/2025 10:36 AM CDT [facility] BUN 13 7 - 18 MG/DL 06/06/2025 10:36 AM CDT [facility] CREATININE S/P/B 0.56(L) 0.7 - 1.3 MG/DL 06/06/2025 10:36 AM CDT [facility] SODIUM S/P/B 141 136 - 145 MMOL/L 06/06/2025 10:36 AM CDT [facility] POTASSIUM S/P/B 4.0 3.5 - 5.1 MMOL/L 06/06/2025 10:36 AM [facility] CHLORIDE S/P/B 103 100 - 108 MMOL/L 06/06/2025 10:36 AM [facility] CO2 29.8 21 - 32 MMOL/L 06/06/2025 10:36 AM [facility] CALCIUM S/P/B 9.3 8.5 - 10.1 MG/DL 06/06/2025 10:36 AM [facility] BILIRUBIN TOTAL S/P/B 0.4 0.2 - 1.2 MG/DL 06/06/2025 10:36 AM [facility] TOTAL PROTEIN S/P/B 8.1 6.4 - 8.2 G/DL 06/06/2025 10:36 AM [facility] ALBUMIN S/P/B 4.5 3.4 - 5.0 G/DL 06/06/2025 10:36 AM [facility] AST 14(L) 15 - 37 U/L 06/06/2025 10:36 AM [facility] ALT 20 16 - 60 U/L 06/06/2025 10:36 AM [facility] ALKALINE PHOSPHATASE S/P/B 68 50 - 136 U/L 06/06/2025 10:36 AM [facility] ANION GAP 8.2 5 - 15 MMOL/L 06/06/2025 10:36 AM [facility] BUN CREATININE RATIO 23.2 6 - 26 06/06/2025 10:36 AM [facility] A/G RATIO 1.2 1.0 - 2.0 RATIO 06/06/2025 10:36 AM [facility] GFR ESTIMATE >90 >90 ML/MIN/1.7 3 M2 06/06/2025 10:36 AM CDT [facility] Comment: NOTE: eGFR is not calculated for patients <18 years of age. This is an estimated GFR calculation using the new CKD EPI creatinine equation without race and so does not require a correction factor for race. This estimated GFR should not be used for calculating drug doses. 06/06/2025 9:48 AM CDT Zita Fonseca MD LABORATORY Final Result [facility] [address] [place] [address], [place] [phone] * D-DIMER, QUANTITATIVE (06/06/2025 9:48 AM CDT) D-DIMER <215 0 - 500 ng{FEU}/mL 06/06/2025 11:01 AM CDT [facility] Comment: D-Dimer values less than or equal to 500 ng/mL FEU have a negative predictive value of >95% for exclusion of deep vein thrombosis and pulmonary embolism. In patients over 50 (who tend to have higher normal baseline D-Dimer values), recent studies suggest age-adjusted D-Dimer cutoff values (calculated as: age [years] x 10 ng/mL) result in equivalent outcomes and no additional false negative findings. 06/06/2025 9:48 AM CDT Zita Fonseca MD LABORATORY Final Result [facility] [address] [place] [address], [place] [phone] * CBC W/DIFF AUTOMATED (06/06/2025 9:48 AM CDT) WBC 6.48 4.4 - 11.0 x10'3/uL 06/06/2025 10:22 AM CDT [facility] RBC 5.12 4.50 - 5.90 x10'6/uL 06/06/2025 10:22 AM T [facility] HGB 15.3 14.0 - 17.5 G/DL 06/06/2025 10:22 AM T [facility] HCT 44.6 41.5 - 50.4 % 06/06/2025 10:22 AM T [facility] MCV 87.1 80.0 - 96.0 FL 06/06/2025 10:22 AM T [facility] MCH 29.9 26.5 - 31.4 PG 06/06/2025 10:22 AM T [facility] MCHC 34.3 31.9 - 34.8 G/DL 06/06/2025 10:22 AM [facility] RDW 13.1 12.3 - 14.3 % 06/06/2025 10:22 AM T [facility] PLT 190 151 - 353 x10'3/uL 06/06/2025 10:22 AM [facility] MPV 10.9 9.7 - 11.9 FL 06/06/2025 10:22 AM [facility] RBC MORPHOLOGY NORMAL 06/06/2025 10:22 AM T [facility] PLT MORPH. NORMAL 06/06/2025 10:22 AM T [facility] WBC MORPHOLOGY NORMAL 06/06/2025 10:22 AM T [facility] LYMPHOCYTES % 22.7 15.8 - 45.0 % 06/06/2025 10:22 AM T [facility] NEUTROPHILS % 64.5 42.1 - 71.9 % 06/06/2025 10:22 AM T [facility] MONOCYTES % 11.1 5.7 - 12.5 % 06/06/2025 10:22 AM CDT [facility] EOSINOPHILS 0.9 0.0 - 5.6 % 06/06/2025 10:22 AM CDT [facility] BASOPHILS 0.6 0.0 - 1.3 % 06/06/2025 10:22 AM CDT [facility] ABS. NEUTROPHILS 4.18 1.40 - 6.00 x10'3/uL 06/06/2025 10:22 AM CDT [facility] IMMATURE GRANS % 0.2 0.0 - 0.5 % 06/06/2025 10:22 AM CDT [facility] ABS. LYMPHOCYTES 1.47 0.80 - 4.70 x10'3/uL 06/06/2025 10:22 AM CDT [facility] 06/06/2025 9:48 AM CDT us Zita Fonseca MD LABORATORY Final Result [facility] [address] [place] [address], [place] [phone] * AMYLASE (06/06/2025 9:48 AM CDT) AMYLASE S/P/B 61 25 - 115 UNITS/L 06/06/2025 10:36 AM CDT [facility] 06/06/2025 9:48 AM CDT us Zita Fnoseca MD LABORATORY Final Result Performing Organization Address City/[facility]/ZIP Co de Phone Number [facility] [address] [place] [address], [place] [phone] * MAGNESIUM (06/06/2025 9:48 AM CDT) MAGNESIUM 1.9 1.8 - 2.4 MG/DL 06/06/2025 10:36 AM CDT [facility] 06/06/2025 9:48 AM CDT us Zita Fonseca MD LABORATORY Final Result Performing Organization Address City/[facility]/ZIP Co de Phone Number [facility] [address] [place] [address], [place] [phone] * LIPASE (06/06/2025 9:48 AM CDT) LIPASE 22 16 - 77 UNITS/L 06/06/2025 10:36 AM CDT [facility] 06/06/2025 9:48 AM CDT us Zita Fonseca MD LABORATORY Final Result Performing Organization Address [facility] de Phone Number [facility] [address] [place] [address], [place] [phone] from Last 3 Months Insurance [employer] Care Teams Professor Of Psychiatry Relationship Specialty Start Date End Date Katelyn Harry NP [address] [place] [address] PCP - General FAMILY PRACTICE 06/06/25
--- OUTSIDE RECORDS SUMMARY | 2025-06-13 00:40 | XMS_ITS | Clinical Summary ---
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 Gender Identity Not on file Sexual Orientation Not on file Plan of Treatment Health Maintenance Due Date Last Done Comments Hepatitis C Virus (HCV) Screening 1995 TdaP Immunization 1995 Hepatitis B Immunization (1 of 3 - 19+ 3-dose series) 2014 Influenza Immunization (#1) 2024 SARS-COV-2 Immunization (3 - 2023- season) 2024 07/20/2021, 06/28/2021 Respiratory Syncytial Virus (RSV) Immunization (Adult) (1 - 1-dose 75+ series) 2070 Meningococcal Immunization (ACWY) Aged Out No longer eligible b ased on patient's age to complete this topic Pneumococcal Immunization Combined Aged Out No longer eligible b ased on patient's age to complete this topic Rotavirus Immunization Aged Out No lo nger eligible based on patient's age to complete this topic
--- OUTSIDE RECORDS SUMMARY | 2025-06-13 00:40 | XMS_ITS | Clinical Summary ---
Author Organization [facility] Address [address] [place] [address] Phone Care Team Providers Care Retort Cooler Name Role Phone Unknown, Notinfile Primary Care Provider Unavail able Allergies No known active allergies Encounters Date Type Department Care Team Description 05/22/2025 12:40 PM CDT - 05/22/2025 3:14 PM CDT Emergency [facility] Emergency Department [address] [place] [address] Jared Avendano MD Intercostal pain (Primary Dx) Discharge Disposition: Discharge to home or self care from Last 3 Months Social History Tobacco Use Types Packs/Day Years Used Date Smoking Tobacco: Never Assessed Personal Safety Answer Date Recorded Have you ever been in or are you currently in a harmful physical or emotional relationship or is someone making you feel afraid or unsafe? 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 Gender Identity Not on file Sexual Orientation Not on file Obstetrics History Last Filed Vital Signs Vital Sign Reading [...] 05/22/2025 12:18 PM CDT Plan of Treatment Health Maintenance Due Date Last Done Comments Depression Screening 1995 Hepatitis C Screening 1995 DTaP/Tdap/Td Vaccine (1 - Tdap) 2006 Varicella Vaccines (1 of 2 - 13+ 2-dose series) 2008 Hepatitis B Screening 2013 Regular Well Visit/Exam 18-64 2013 Covid-19 Vaccine (3 - 2023-2 5 season) 2024 07/20/2021, 06/28/2021 Influenza Vaccine (#1) 2025 HPV Vaccines Aged Out No longer eligi ble based on patient's age to complete this topic Pneumococcal vaccine <65 Aged Out No longer eligible based on patient's age to complete [...] I high-sensitivity 2-hour (05/22/2025 2:26 PM CDT) [facility] Trop I hs <4 <=35 ng/L Comment: Interpretive Data For further hscTnI resources including the diagnostic algorithm and an aid in interpretation, copy and paste this link: https://bjhlab.testcatalog.org/show/hsTrop-1 Current Interpretive Data last revised 2020. Trop I hs delta 0 ng/L [facility] Trop I hs interp Insignificant [facility] Blood 05/22/2025 2:26 PM CDT 05/22/2025 2:46 PM CDT us Margaret White MD LAB BLOOD ORDERABLES Final Result [facility] [place] [address] * POCT Rapid HIV Antibody Community Screening-Ole Eligible (05/22/2025 1:33 PM CDT) [facility] Rapid HIV, POC Negative Negative Lot Number [id number] QC Control Line Acceptable Blood 05/22/2025 1:33 PM CDT Jared Avendano MD POINT OF CARE TEST ORDER KATHLEEN Final Result * D-dimer, quantitative (05/22/2025 1:25 PM CDT) [facility] D-Dimer <215 <=499 ng/mL FEU Comment: [...] 68, VTE cut-off 680 ng/ml FEU. References; Schoutrylan HT et al. Brit Med J. 2013;346:f2492. Alex et al. Annals Int Med. 2015;163:701-11. Current interpretive data was last revised on 2019. Blood 05/22/2025 1:25 PM CDT 05/22/2025 1:41 PM CDT us Nemesio Mullins MD LAB BLOOD ORDERABLES F inal Result [facility] [place] [address] * XR Chest PA Lateral 2 Views [...] it. Electronically signed by: Richie Mendez M.D. us Jared Avendano MD IMG XR PROCEDURES Final Result * ECG 12-LEAD (05/22/2025 12:37 PM CDT) Narrative [facility] - 05/22/2025 12:37 PM CDT Katelyn Mccray [...] Avendano MD ECG ORDERABLES Final Re sult [facility] * Troponin I high-sensitivity series (baseline, 2hr, 4hr, 6hr) (05/22/2025 12:33 PM CDT) Pathologist [facility] [place] Trop I hs <4 <=35 ng/L Comment: Interpretive Data For further hscTnI resources including the diagnostic algorithm and an aid in interpretation, copy and paste this link: https://bjhlab.testcatalog.org/show/hsTrop-1 Current Interpretive Data last revised 2020. Blood 05/22/2025 12:3 3 PM CDT 05/22/2025 12:51 PM CDT us Jared Avendano MD LAB BLOOD ORDERABLES Fin al Result [facility] Department [place] [address] * eGFR (05/22/2025 12:33 PM CDT) Pathologist [facility] [place] eGFR >90 >=60 mL/min/1. 73 m2 Comment: [...] of Race in Diagnosing Kidney Disease, JASN 202). The CKD-EPI equation should not be used for patients with unstable renal function and has not been validated in children and those over 70. Current interpretive data was last reviewed 2021. Blood 05/22/2025 12:3 3 PM CDT 05/22/2025 12:51 PM CDT us Margaret White MD LAB BLOOD ORDERABLES Final Result [facility] [place] [address] * Differential, auto (05/22/2025 12:33 PM CDT) Neutrophil abs 2.54 1.50 - 6.50 K/cumm Imm gran abs 0.02 0.00 - 0.10 K/cumm [facility] Lymphocyte abs 2.17 0.80 - 3.30 K/cumm [facility] Monocyte abs 0.71 0.20 - 0.80 K/cumm [facility] Eosinophil abs 0.17 0.00 - 0.50 K/cumm [facility] Basophil abs 0.07 0.00 - 0.10 K/cumm [facility] Neutrophil pct 44.7 % [facility] Comment: Interpretive Data Percent cell count reference ranges are not reported, since discordance with absolute values may lead to misinterpretation of CBC data. Current Interpretive Data was last revised on 2018. Imm gran pct 0.4 % [facility] Comment: Interpretive Data Percent cell count reference ranges are not reported, since discordance with absolute values may lead to misinterpretation of CBC data. Current Interpretive Data was last revised on 2018. Lymphocyte pct 38.2 % [facility] Comment: Interpretive Data Percent cell count reference ranges are not reported, since discordance with absolute values may lead to misinterpretation of CBC data. Current Interpretive Data was last revised on 2018. Monocyte pct 12.5 % [facility] Comment: Interpretive Data Percent cell count reference ranges are not reported, since discordance with absolute values may lead to misinterpretation of CBC data. Current Interpretive Data was last revised on 2018. Eosinophil pct 3.0 % [facility] Comment: Interpretive Data Percent cell count reference ranges are not reported, since discordance with absolute values may lead to misinterpretation of CBC data. Current Interpretive Data was last revised on 2018. Basophil pct 1.2 % [facility] Comment: Interpretive Data Percent cell count reference ranges are not reported, since discordance with absolute values may lead to misinterpretation of CBC data. Current Interpretive Data was last revised on 2018. Blood 05/22/2025 12:3 3 PM CDT 05/22/2025 12:51 PM CDT us Jared Avendano MD LAB BLOOD ORDERABLES Fin al Result [facility] [place] [address] * CBC with auto differential (05/22/2025 12:33 PM CDT) WBC 5.68 3.80 - 9.90 K/cumm Hgb 14.6 13.0 - 17.5 g/dL [facility] Hct 41.9 38.9 - 50.3 % [facility] Plt 246 150 - 400 K/cumm [facility] MPV 9.9 9.1 - 12.[address] [facility] RBC 4.97 4.30 - 5.80 M/cumm [facility] MCV 84.3 81.3 - 96.[address] [facility] MCH 29.4 27.1 - 33.[address] [facility] MCHC 34.8 32.3 - 35.7 g/dL [facility] RDW CV 13.1 11.1 - 14.9 % [facility] RDW SD 40.4 35.7 - 48.[address] [facility] NRBC abs 0.00 0.00 - 0.01 K/cumm [facility] Blood Venous blood specimen / Unknown 05/22/2025 12:33 PM CDT 05/22/2025 12:51 PM CDT us Jared Avendano MD LAB BLOOD ORDERABLES Fin al Result [facility] [place] [address] * (ABNORMAL) Comprehensive metabolic panel (05/22/2025 12:33 PM CDT) Sodium 139 135 - 145 mmol/L Potassium, pl 4.6 3.3 - 4.9 mmol/L [facility] Chloride 105 97 - 110 mmol/L [facility] CO2 28 22 - 32 mmol/L [facility] Anion gap 6 2 - 15 mmol/L [facility] BUN 12 6 - 25 mg/dL [facility] Creatinine 0.79(L) 0.80 - 1.30 mg/dL [facility] Glucose 94 70 - 199 mg/dL [facility] Comment: Interpretive Data Fasting glucose >/= [...] classification and Diagnosis of Diabetes Diabetes Care 202; 46: S19-S40. Current interpretive data was last revised 2022. Calcium 9.1 8.5 - 10.3 mg/dL [facility] Bilirubin, total 0.5 0.1 - 1.2 mg/dL [facility] Protein, pl 7.0 6.5 - 8.5 g/dL [facility] Albumin 4.4 3.5 - 5.0 g/dL [facility] Alk phos 53 40 - 130 Units/L [facility] ALT 28 7 - 55 Units/L [facility] AST 30 10 - 50 Units/L [facility] Blood 05/22/2025 12:3 3 PM CDT 05/22/2025 12:51 PM CDT us Jared Avendano MD LAB BLOOD ORDERABLES Fin al Result [facility] [place] [address] from Last 3 Months Insurance [employer] PPO A[employer] [place] PPO Care Teams Retort Cooler Relationship Specialty Start Date End Date Unknown, Notinfile PCP - General 10/10/22
[2025-06-13 13:13] VITALS: BP 126/66; PULSE 72; RESP 18; TEMP 36.3; O2SAT 100
[2025-06-13] MEDS: LACTATED RINGERS 1,000 ML 150 ML IV CONT (13:24)
[2025-06-13] MEDS: SIMETHICONE ORAL SUSPENSION 20 MG/0.3 ML 30 ML BOTTLE 1.8 ML PO (13:26)
--- NOTE | 2025-06-13 13:33 | WPDANESEPPF ---
Anes - Initial Pre Proc Eval Procedure: Operation Date: 06/13/25 14:15 Proposed Procedures p EGD & Diagnostic Colonoscopy - Ok López MD Date/Time: 06/13/25 13:33 Surgeon: Ok López MD Pre Op Diagnosis: Generalized abdominal pain Patient Data Age: 29 Gender: M Height: 1.7 m Weight: 53 kg Last Vital Signs Temp 36.3 C L 06/13/25 13:13 Pulse 72 06/13/25 13:13 Resp 18 06/13/25 13:13 BP 126/66 06/13/25 13:13 Pulse Ox 100 06/13/25 13:13 O2 Del Method Room Air 06/13/25 13:13 Allergies Allergy/AdvReac Type Severity Reaction Status Date / Time No Known Allergies Allergy Verified 06/13/25 13:11 Home Medications ?Medication ?Instructions ?Recorded ?Confirmed ?Type No Home Medications 06/11/25 06/13/25 History Patient hx anesthesia problems: none Family hx anesthesia problems: none Results Review: All pre-operative results and documents have been reviewed as part of the pre-operative evaluation. [facility] Past Medical History Medical History Back pain Pneumonia Surgical History Surgical History History of hip surgery left August 2021 Family History Family History Father Bone disease Hypertension Heart disease Grandparent Cancer Hypertension Grandparent Dementia Cancer Hypertension Sibling Depression Mother Hypertension Social History Social History Smoking status: Current every day smoker Tobacco type: cigarettes and e-cigarettes/vaping Alcohol intake: never Substance use: current Substance use type: marijuana Last use: every day Living arrangements: with family Gender identity (if verbalized by the patient): Male Spiritual care concerns: No Anes - Eval Final PreProcedure Day of Procedure 06/13/25 13:33 Patient weight: normal Heart: regular rate and rhythm Lungs: clear to auscultation Airway: Mallampati scale class II Neurological: alert and oriented Last oral intake: >/= 8 hours ASA classification: II Emergent: no Anesthetic plan: proceed Anesthesia type and monitoring: general GIVS and standard monitoring Results Review: All pre-operative results and documents have been reviewed as part of the pre-operative evaluation. Informed Consent: The patient's anesthetic plan and its attendant risks and benefits were discussed with the patient/family/POA. Questions were solicited and answers provided to the satisfaction of the patient/family/POA.
--- NOTE | 2025-06-13 14:05 | PM.IMHP ---
H&P: HPI History of Present Illness Date/Time: 06/13/25 14:05 Chief Complaint: Diarrhea, occasional bloody stools. Narrative: Patient referred by his primary care physician for endoscopy & colonoscopy for intermittent diarrhea and occasional rectal bleeding. Review of Systems Review of Systems: All systems reviewed & are unremarkable except as noted in HPI and below PMFSH Past Medical History Medical History Back pain Pneumonia Surgical History Surgical History History of hip surgery left August 2021 Family History Family History Father Bone disease Hypertension Heart disease Grandparent Cancer Hypertension Grandparent Dementia Cancer Hypertension Sibling Depression Mother Hypertension Social History Social History Smoking status: Current every day smoker Tobacco type: cigarettes and e-cigarettes/vaping Alcohol intake: never Substance use: current Substance use type: marijuana Last use: every day Living arrangements: with family Gender identity (if verbalized by the patient): Male Spiritual care concerns: No Meds Home Medications and Allergies Home Medications ?Medication ?Instructions ?Recorded ?Confirmed ?Type No Home Medications 06/11/25 06/13/25 History Allergies Allergy/AdvReac Type Severity Reaction Status Date / Time No Known Allergies Allergy Verified 06/13/25 13:11 Vital Signs Vital Signs - 24 hr 06/13/25 13:13 Temperature 97.4 F L Pulse Rate 72 Respiratory Rate 18 Blood Pressure 126/66 Pulse Oximetry 100 Oxygen Delivery Room Air Exam Const: General: cooperative and healthy appearing Resp: Effort & Inspection: normal respiratory effort and able to speak in complete sentences Auscultation: clear to auscultation bilaterally Cardio: Rate: regular rate Rhythm: regular rhythm GI: Inspection: normal to inspection GI Palp: No No hepatosplenomegaly present Auscultation: normal bowel sounds Rectal Exam: deferred Skin: General skin exam: normal color Psych: Appearance: grossly normal Mental Status: mental status grossly normal Assessment and Plan Assessment and plan (1) Generalized postprandial abdominal pain: Code(s): R10.84 - Generalized abdominal pain Status: Acute Assessment and Plan: The patient is deemed a good candidate for the procedures. Consent signed. Will proceed. (2) Chronic diarrhea: Code(s): K52.9 - Noninfective gastroenteritis and colitis, unspecified Status: Acute
--- NOTE | 2025-06-13 14:33 | SUR.OPER ---
EGD start 1425 end 1428, Colonoscopy start 1433.
[2025-06-13] MEDS: SIMETHICONE ORAL SUSPENSION 20 MG/0.3 ML 30 ML BOTTLE 0.6 ML IRRIGATION (14:37)
[2025-06-13 14:50] VITALS: BP 108/56; PULSE 60; RESP 20; O2SAT 100
--- NOTE | 2025-06-13 14:50 | S_PTH ---
PATIENT: Lucien Small LOC: [facility] U#:[id number] AGE/SX: 29/M ROOM: RE06/13/[address]: Ok López MD : 1995 BED: DIS: 06/13/2025 SPEC #: [id number] RECD: 06/16/25 07:44 STATUS: SWAPNA REQ #: [id number] NAIF: 06/13/25 14:[address]: Ok López DEPT: [facility] Surgical RECD BY: Imelda Conway ENTERED: 06/16/25 07:45 SP TYPE: Surgical OTHR DR: Katelyn Harry, RICARDA Tissues: A - Gastric Biopsy B - Gastric Biopsy C - Colon Biopsy D - Colon Biopsy Procedures: Hematoxylin and Eosin Stain Gross and Microscopic Level 4
[2025-06-13 15:00] VITALS: BP 111/55; PULSE 64; RESP 20; O2SAT 100
[2025-06-13 15:10] VITALS: BP 111/62; PULSE 71; RESP 22; O2SAT 100
== END 2025-06-13 15:21 | disposition home or self-care (01) ==
PROVIDERS: PCP Nurse Practitioner Family; Referring Provider Nurse Practitioner Family; Visit Provider Internal Medicine Gastroenterology
PROC: 0DJ08ZZ Inspection of Upper Intestinal Tract, Via Natural or Artificial Opening Endoscopic (ICD-10-PCS; CPT 45378; principal; 2025-06-13 14:15)
DX: K52.832 Lymphocytic colitis (principal); K29.30 Chronic superficial gastritis without bleeding; F17.210 Nicotine dependence, cigarettes, uncomplicated; F17.290 Nicotine dependence, other tobacco product, uncomplicated; F12.90 Cannabis use, unspecified, uncomplicated
CPT/HCPCS: 45380; 43239; 88305; J2004; J2704; J7120

== ENCOUNTER 2025-10-04 09:48 | Outpatient (CLI) | payer OTHER, SELFPAY ==
--- OUTSIDE RECORDS SUMMARY | 2025-10-04 09:51 | XMS_ITS | Clinical Summary ---
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
--- OUTSIDE RECORDS SUMMARY | 2025-10-04 09:52 | XMS_ITS | Clinical Summary ---
Author Organization [facility] Address 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
--- OUTSIDE RECORDS SUMMARY | 2025-10-04 09:52 | XMS_ITS | Clinical Summary ---
Author Organization [facility] Address [address] [place] [address] Care Team Providers Care Healthcare Advisory Services Manager Name Role Phone Katelyn Harry CUT OUT STITCHER Primary Care Provider [phone] Allergies No known active allergies Medications dicyclomine (BENTYL) 20 MG tablet Take 1 tablet (20 mg total) by mouth every 6 (six) hours. 20 tablet 5 Active ondansetron (ZOFRAN-ODT) 4 MG disintegrating tablet Take 1 tablet (4 mg total) by mouth every 8 (eight) hours as needed for Nausea. 20 tablet 5 Active Family History Medical History Relation Comments Heart [...] M series) 2022 COVID-19 Vaccine (3 - 2024-2 6 season) 2025 07/20/2021, 06/28/2021 Influenza Adult (#1) 2025 Hepatitis A Vaccines Aged Out No long er eligible based on patient's age to complete this topic Meningococcal B Vaccine Aged Out No l onger eligible based on patient's age to complete this topic Meningococcal Vaccine Aged Out No bhavana caesar eligible based on patient's age to complete this topic RSV Immunizations Under 20 Months Aged Out No longer eligible b ased on patient's age to complete this topic Insurance AETNA Care Teams Healthcare Advisory Services Manager Relationship Specialty Start Date End Date Katelyn Harry, [address] [place] [address] PCP - General FAMILY PRACTICE 06/06/25
[2025-10-04 10:05] LABS: Hematocrit 44.8 % (42.0-52.0); Hemoglobin 15.5 g/dL (14.0-18.0); Immature Granulocyte Percent A 0.3 % (0-0.5); Lymphocytes Absolute Auto 2.47 K/mm3 (0.9-3.2); Mean Corpuscular HGB Conc 34.6 g/dl (32-36); Mean Corpuscular Hemoglobin 29.9 pg (26-34); Mean Corpuscular Volume 86.5 fl (80-100); Nucleated Red Blood Cells Absolute Auto 0.000 K/mm3 (0.0-0.012); Nucleated Red Blood Cells Perc 0.0 % (0.0-0.2); Platelet Count Result 209 k/mm3 (150-375); Red Blood Count 5.18 M/mm3 (4.6-6.20); White Blood Count 7.0 K/mm3 (4.5-10.0)
[2025-10-04 10:26] LABS: Alanine Aminotransferase 22 U/L (6-50); Albumin Level 4.8 g/dL (3.5-5.1); Alkaline Phosphatase 61 U/L (38-126); Anion Gap 8 mmol/L (4-12); Aspartate Amino Transferase 27 U/L (17-59); Bilirubin,Total 0.6 mg/dL (0.2-1.3); Blood Urea Nitrogen 16 mg/dL (9-20); Calcium 9.3 mg/dL (8.4-10.2); Carbon Dioxide 30 mmol/L (22-30); Chloride 100 mmol/L (98-107); Cholesterol 174 mg/dL (0-200); Estimated Glomerular Filt Rate > 60; Glucose 96 mg/dL (65-110); HDL Direct 43 mg/dL; Potassium 4.0 mmol/L (3.4-5.0); Sodium 138 mmol/L (137-145); Total Protein 7.7 g/dL (6.3-8.2); Triglycerides 88 mg/dL (<150)
[2025-10-04 10:56] LABS: Thyroid Stimulating Hormone Reflex 1.260 uIU/mL (0.465-4.68)
== END 2025-10-04 09:49 | disposition home or self-care (01) ==
LOC: ANHLAB 09:49
PROVIDERS: PCP Nurse Practitioner Family; Visit Provider Nurse Practitioner Family
DX: K52.9 Noninfective gastroenteritis and colitis, unspecified (principal); R10.84 Generalized abdominal pain; Z13.220 Encounter for screening for lipoid disorders
CPT/HCPCS: 36415; 80053; 80061; 84443; 85025; 85652

== ENCOUNTER 2025-11-19 15:10 | Outpatient (CLI) | payer OTHER, SELFPAY ==
--- OUTSIDE RECORDS SUMMARY | 2025-11-19 15:13 | XMS_ITS | Clinical Summary ---
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
--- OUTSIDE RECORDS SUMMARY | 2025-11-19 15:13 | XMS_ITS | Clinical Summary ---
Author Organization [facility] Address [address] [place] [address] Care Team Providers Care Laboratory Veterinarian Name Role Phone Katelyn Harry BEHAVIORAL HEALTH ASSISTANT Primary Care Provider [phone] Allergies No known active allergies Medications dicyclomine [...] complete this topic Insurance AETNA Care Teams Laboratory Veterinarian Relationship Specialty Start Date End Date Katelyn Harry, [address] [place] [address] PCP - General FAMILY PRACTICE 06/06/25
[2025-11-24 09:08] LABS: Calprotectin, Fecal 62 ug/g (0-120)
[2025-11-25 15:09] LABS: Pancreatic Elastase, Fecal >800 (>200)
== END 2025-11-19 15:11 | disposition home or self-care (01) ==
LOC: ANHLAB 15:11
PROVIDERS: PCP Nurse Practitioner Family; Visit Provider Nurse Practitioner Family
DX: K52.9 Noninfective gastroenteritis and colitis, unspecified (principal)
CPT/HCPCS: 82653; 83993